=== PATIENT | male | born 1990 | race Caucasian/White ===

== ENCOUNTER 2018-02-21 19:32 | Inpatient (IN) | payer BC ==
[~2018-02-21] VITALS: Ht 188 cm; Wt 68.0 kg
[2018-02-21 19:54] VITALS: BP 124/78
--- NOTE | 2018-02-21 20:02 | NUR ---
PT. AMBULATED TO [facility]
[2018-02-21] MEDS ORDERED: NACL 0.9% 1,000 ML IV ONE ×3 (20:18→22:30)
--- NOTE | 2018-02-21 20:41 | NUR ---
27/M C/O GENERALIZED WEAKNESS AND BROWN URINE X 1330 TODAY. REPORTS OVEREXERTION TODAY AND THAT WAS WHEN ONSET OF SYMPTOMS STARTED. PMH: MYOGLOBINURIA AND RHABDOMIOLYSIS
--- NOTE | 2018-02-21 20:41 | NUR ---
PT.AMBULATED TO ER BED 9
[2018-02-21 20:56] LABS: APPEARANCE,URINE CLEAR (CLEAR); BILIRUBIN,URINE NEGATIVE (NEGATIVE); BLOOD, URINE 3+ (NEGATIVE); LEUKOCYTE ESTERASE ,URINE NEGATIVE (NEGATIVE); NITRITE, URINE NEGATIVE (NEGATIVE); UGLUCOSE NEGATIVE (NEGATIVE)
[2018-02-21 20:58] LABS: COLOR,URINE YELLOW (YELLOW)
[2018-02-21 21:03] LABS: BASOPHILS % (AUTO) 0.2 % (0.0-2.0); EOSINOPHILS # (AUTO) 0.1 K/uL (0-0.4); EOSINOPHILS % (AUTO) 0.5 % (0.0-4.0); HEMATOCRIT 49.6 % (36-52); LYMPHOCYTES # (AUTO) 1.6 K/uL (2.0-11.5); LYMPHOCYTES % (AUTO) 15.1 % (20.5-51.1); MEAN CORPUSCULAR HEMOGLOBIN 33 pg (27-31); MEAN CORPUSCULAR HGB CONC 34 g/dL (33-37); MONOCYTES % (AUTO) 8.9 % (1.7-9.3); NEUTROPHILS # (AUTO) 8.1 K/uL (1.8-7.7); NEUTROPHILS % (AUTO) 75.3 % (42.2-75.2); PLATELET COUNT (AUTO) 241 K/uL (140-450); RED BLOOD CELL COUNT(AUTO) 5.23 MIL/uL (4.20-6.10); RED CELL DISTRIBUTION WIDTH 12.7 % (11.6-13.7); WHITE BLOOD COUNT (AUTO) 10.7 K/uL (4.8-10.8)
[2018-02-21 21:06] LABS: RBC,URINE 0-5 (RARE) /HPF (0-5); WBC,URINE 0-5 (RARE) /HPF (0-5)
[2018-02-21 21:11] LABS: ANION GAP 13.8 (8-16); CARBON DIOXIDE 28.3 mmol/L (21-32); CREATININE 0.7 mg/dL (0.7-1.3); POTASSIUM 4.1 mmol/L (3.5-5.1)
[2018-02-21 21:18] LABS: ALBUMIN 4.7 g/dL (3.4-5.0); MAGNESIUM 2.2 mg/dL (1.8-2.4); PHOSPHORUS 3.8 mg/dL (2.5-4.9)
[2018-02-21] MEDS ORDERED: LORazepam 2 MG/ML VIAL IVP ONE (21:35)
--- NOTE | 2018-02-21 22:30 | NUR ---
Patient appears to be resting comfortably in bed. Vital Signs within normal limits. Respirations even and unlabored.
[2018-02-22] MEDS ORDERED: DIAZEPAM 5 MG TAB PO ONE (00:10)
[2018-02-22] MEDS ORDERED: KETOROLAC 30 MG/ML VIAL IVP ONE (01:15)
[2018-02-22] MEDS ORDERED: MORPHINE SULFATE 4 MG/ML SYR IVP ONE (01:20)
[2018-02-22] MEDS ORDERED: MORPHINE SULFATE 4 MG/ML SYR IVP PRN (02:00)
[2018-02-22] MEDS ORDERED: DOCUSATE SODIUM 100 MG GELCAP PO PRN (02:00)
[2018-02-22] MEDS ORDERED: ONDANSETRON 4 MG/2 ML VIAL IM/IVP PRN (02:00)
[2018-02-22] MEDS ORDERED: HYDROcodone/APAP 7.5/325 MG 1 TAB PO PRN (02:00)
[2018-02-22] MEDS ORDERED: ACETAMINOPHEN 325 MG TAB PO PRN (02:00)
--- NOTE | 2018-02-22 02:15 | NUR ---
Patient will be admitted to care of [facility]. Admited to TELE. Will go to room 119B. Belongings list completed. Report to RACHEL FRYE.
[2018-02-22 02:20] LABS: PROTHROMBIN TIME 10.1 secs (10.8-13.4)
[2018-02-22 02:30] VITALS: BP 117/77
[2018-02-22 02:30] LABS: CHOL/HDL RATIO 5.8 (1-4.5); FREE T4 (FREE THYROXINE) 0.89 ng/dL (0.76-1.46); MAGNESIUM 2.2 mg/dL (1.8-2.4); PHOSPHORUS 3.8 mg/dL (2.5-4.9); THYROID STIMULATING HORMONE 1.59 uIU/mL (0.34-3.74)
--- NOTE | 2018-02-22 02:30 | NUR ---
RECEIVED PT FROM ER VIA WHEELCHAIR AAOX4 AMBULATORY SKIN INTACT HL ON LEFT AC GAUGE # 2O RADHA TODD PROTOCOL DON AND SENT TO LAB DOCTOR GABBY IS HERE AND SEE THE PT PT IS ORIENTED TO THE FLOOR CALL LIGHT WITHIN REACH
[2018-02-22] MEDS: NACL 0.9% 1,000 ML IV SCH ×3 (02:45→19:04)
[2018-02-22] MEDS ORDERED: LORazepam 0.5 MG TAB PO PRN (03:15)
[2018-02-22] MEDS ORDERED: CYCLOBENZAPRINE 10 MG TAB PO SCH (03:16)
[2018-02-22] MEDS ORDERED: LAMO150T6 PO (03:29)
[2018-02-22] MEDS ORDERED: ATI.5 PO (03:29)
--- NOTE | 2018-02-22 03:34 | NUR ---
PT SUDDENLY VOMITING CLEAR AND ZOFRAN GIVEN ORDER
[2018-02-22 04:00] VITALS: BP 112/70
--- NOTE | 2018-02-22 06:00 | NUR ---
PT SLEEPING NOT DISTRESS NOTED ON TELMETRY SR IV INFUSING WELLON LEFT AC
[2018-02-22 08:00] VITALS: BP 108/57
--- NOTE | 2018-02-22 08:01 | NUR ---
REPORT RECEIVED FROM NIGHT NURSE AT BEDSIDE. PT LAYING DOWN IN BED. PT NOT IN ACUTE DISTRESS. BED LOCKED IN LOW POSITION. CALL SMITH WITHIN REACH. WILL CONTINUE TO MONITOR.
--- NOTE | 2018-02-22 08:45 | NUR ---
AM MEDS GIVEN. PT TOLERATED WELL. PT UP TO TAKE MEDICATION BUT STILL DROWSY. AFTER MEDS PT WENT BACK TO SLEEP. WILL CONTINUE TO MONITOR.
--- NOTE | 2018-02-22 08:49 | NUR ---
PATIENT HAS BEEN SCREENED AND CATEGORIZED MODERATE NUTRITION RISK. PATIENT WILL BE SEEN WITHIN 3-5 DAYS OF ADMISSION. 02/24/18 02/26/[address]
[2018-02-22] MEDS: CYCLOBENZAPRINE 10 MG TAB PO SCH ×3 (08:56→17:32)
[2018-02-22] MEDS: lamoTRIgine 100 MG, lamoTRIgine 50 MG PO SCH ×2 (08:57)
[2018-02-22 12:00] VITALS: BP 106/61
--- NOTE | 2018-02-22 13:50 | NUR ---
SPOKE WITH JOHN, PARTS FINISHER. FOR [facility], HAS BEEN APPROVED FOR 1 DAY, AUTH [id number]. SHE SAID TO FAX REVIEW TO [phone] PHONE [phone] OP 6 FOR [employer], IS [employer]. I CALLED [employer] AND SPOKE WITH MEGAN. FAX REVIEW TO [phone] PHONE [phone] MEGAN X [phone]
[2018-02-22 16:00] VITALS: BP 97/47
--- NOTE | 2018-02-22 17:30 | NUR ---
PM MED GIVEN, PT SLEEPING. VS STABLE. PT TOLERATED WELL. WILL CONTINUE TO MONITOR.
--- NOTE | 2018-02-22 19:00 | NUR ---
PT IV FLUID ENDED. REPLACED NEW IV FLUIDS. PT IN NO ACUTE DISTRESS. WILL CONTINUE TO MONITOR.
--- NOTE | 2018-02-22 19:37 | NUR ---
REPORT GIVEN TO NIGHT NURSE. PT IN STABLE CONDITION.
--- NOTE | 2018-02-22 19:37 | NUR ---
RECEIVED REPORT FROM NIGHT RN. PT RESTING IN BED. AAOX4. NO S/S OF ACUTE DISTRESS. PT DENIES PAIN. IV SITE PATENT AND INTACT. CALL LIGHT WITHIN REACH. SAFETY MEASURES ENSURED. WILL CONTINUE TO MONITOR.
[2018-02-22 22:23] VITALS: BP 121/76
--- NOTE | 2018-02-23 00:19 | NUR ---
PT SLEEPING IN BED. NO S/S OF ACUTE DISTRESS. CALL LIGHT WITHIN REACH. SAFETY MEASURES ENSURED. WILL CONTINUE TO MONITOR.
[2018-02-23] MEDS: NACL 0.9% 1,000 ML IV SCH ×5 (00:21→19:46)
[2018-02-23 04:00] VITALS: BP 101/54
[2018-02-23 06:30] LABS: BASOPHILS % (AUTO) 0.4 % (0.0-2.0); EOSINOPHILS # (AUTO) 0.2 K/uL (0-0.4); EOSINOPHILS % (AUTO) 2.9 % (0.0-4.0); HEMATOCRIT 36.2 % (36-52); HEMOGLOBIN 12.4 g/dL (12.0-18.0); LYMPHOCYTES # (AUTO) 1.8 K/uL (2.0-11.5); LYMPHOCYTES % (AUTO) 33.9 % (20.5-51.1); MEAN CORPUSCULAR HEMOGLOBIN 33 pg (27-31); MEAN CORPUSCULAR HGB CONC 34 g/dL (33-37); MEAN CORPUSCULAR VOLUME 95.9 fL (80-94); MONOCYTES # (AUTO) 0.5 K/uL (0.8-1.0); MONOCYTES % (AUTO) 9.4 % (1.7-9.3); NEUTROPHILS # (AUTO) 2.9 K/uL (1.8-7.7); NEUTROPHILS % (AUTO) 53.4 % (42.2-75.2); PLATELET COUNT (AUTO) 173 K/uL (140-450); RED BLOOD CELL COUNT(AUTO) 3.78 MIL/uL (4.20-6.10); RED CELL DISTRIBUTION WIDTH 12.8 % (11.6-13.7); WHITE BLOOD COUNT (AUTO) 5.3 K/uL (4.8-10.8)
[2018-02-23 06:56] LABS: CARBON DIOXIDE 29.9 mmol/L (21-32); CREATININE 0.4 mg/dL (0.7-1.3); POTASSIUM 3.9 mmol/L (3.5-5.1)
[2018-02-23 07:03] LABS: MAGNESIUM 1.6 mg/dL (1.8-2.4); PHOSPHORUS 3.5 mg/dL (2.5-4.9)
--- NOTE | 2018-02-23 07:31 | NUR ---
ENDORSED PLAN OF CARE TO NIGHT RN.
--- NOTE | 2018-02-23 07:36 | NUR ---
RECEIVED REPORT FROM MARKETING AND PUBLIC RELATIONS MANAGER NURSE, PT IS SLEEPING IN BED, BUT EASILY AWAKEN, PT IS AAOX4, AMBULATORY, IV IS ON THE LEFT AC, PATENT, INTACT, FLUSHING WELL, NO S/S OF RESPIRATORY DISTRESS OR DISCOMFORT NOTED, DISCUSSED PLAN OF CARE WITH PT, PT VERBALIZED UNDERSTANDING, CALL LIGHT WITHIN REACH, WILL CONTINUE TO MONITOR.
[2018-02-23 08:00] VITALS: BP 115/70
[2018-02-23] MEDS ORDERED: MAG SULF 2000 MG/WATER PREMIX 100 ML IV SCH (08:11)
[2018-02-23] MEDS: CYCLOBENZAPRINE 10 MG TAB PO SCH ×3 (08:19→17:49)
[2018-02-23] MEDS: lamoTRIgine 100 MG, lamoTRIgine 50 MG PO SCH ×2 (08:20)
[2018-02-23 08:28] LABS: T4 (THYROXINE) 7.6 ug/dL (4.5-12.0)
--- NOTE | 2018-02-23 11:18 | NUR ---
SPOKE TO DR. GROVE AND DR. MCCALLUM, I ASKED THEM IF PATIENT COULD BE DOWN GRADED TO MED SURG BECAUSE PATIENT DID NOT WANT TO WEAR THE TELE MONITOR BOX ANYMORE. PER DR. MCCALLUM OKAY TO DOWNGRADE PATIENT.
--- NOTE | 2018-02-23 11:30 | NUR ---
WALKED PATIENT OVER TO THE SHOWER ROOM.
--- NOTE | 2018-02-23 12:00 | NUR ---
PATIENT IS BACK IN ROOM. SOCIAL WORK MSW IS AT BEDSIDE GETTING READY TO DO ULTRASOUND OF THE ABDOMEN.
--- NOTE | 2018-02-23 15:19 | NUR ---
PATIENT IS RESTING IN BED USING HIS LAPTOP, PATIENT'S FAMILY MEMBER IS AT BEDSIDE, CALL LIGHT IS WITHIN REACH.
[2018-02-23 16:00] VITALS: BP 107/61
--- NOTE | 2018-02-23 19:07 | NUR ---
ENDORSED PT TO SLICING MACHINE OPERATOR NURSE FOR CONTINUITY OF CARE. PT STABLE AT THIS TIME.
--- NOTE | 2018-02-23 19:10 | NUR ---
RECEIVED REPORT FROM DAY SHIFT NURSE. PT SITTING IN BED WITH HIS LAPTOP. NO C/O PAIN. NO RESP DISTRESS NOTED. IV TO LEFT AC #20G, NS AT 200 ML/HE, INFUSING WELL. DISCUSSED PLAN OF CARE, PT VERBALIZED UNDERSTANDING. CALL LIGHT WITHIN REACH.
--- NOTE | 2018-02-23 21:30 | NUR ---
PT SITTING IN BED WATCHING MOVIE ON HIS LAPTOP. ALL NEEDS MET AT THIS TIME. NO C/O PAIN. CALL LIGHT WITHIN REACH.
[2018-02-24] VITALS: BP 112/6
--- NOTE | 2018-02-24 00:05 | NUR ---
PT IN BED, AWAKE. NO DISTRESS NOTED.
--- NOTE | 2018-02-24 02:30 | NUR ---
PT SLEEPING BUT EASILY WAKE SUP. RESP EVEN AND UNLABORED. NO S/S OF PAIN OR DISCOMFORT.
[2018-02-24] MEDS: NACL 0.9% 1,000 ML IV SCH ×5 (03:15→17:58)
--- NOTE | 2018-02-24 04:12 | NUR ---
PT IN BED, AWAKE. NO C/O PAIN OR SOB NOTED. CALL LIGHT WITHIN REACH.
--- NOTE | 2018-02-24 06:19 | NUR ---
PT SLEEPING BUT EASILY AROUSABLE. NO S/S OF DISTRESS.
--- NOTE | 2018-02-24 07:20 | NUR ---
ENDORSED PT TO DAY SHIFT NURSE. PT IN STABLE CONDITION.
--- NOTE | 2018-02-24 07:21 | NUR ---
RECEIVED REPORT FROM PM NURSE AT THE BEDSIDE FOR CONTINUITY OF CARE. INTRODUCED SELF TO PT. UPDATED BOARD. PT STABLE AT THIS TIME. ALL SAFETY MEASURE IN PLACE. WILL CONTINUE TO MONITOR.
[2018-02-24 07:54] LABS: BASOPHILS % (AUTO) 0.8 % (0.0-2.0); EOSINOPHILS # (AUTO) 0.1 K/uL (0-0.4); EOSINOPHILS % (AUTO) 3.1 % (0.0-4.0); HEMOGLOBIN 11.6 g/dL (12.0-18.0); LYMPHOCYTES # (AUTO) 1.7 K/uL (2.0-11.5); LYMPHOCYTES % (AUTO) 36.1 % (20.5-51.1); MEAN CORPUSCULAR HEMOGLOBIN 33 pg (27-31); MEAN CORPUSCULAR HGB CONC 34 g/dL (33-37); MEAN CORPUSCULAR VOLUME 96.3 fL (80-94); MONOCYTES # (AUTO) 0.4 K/uL (0.8-1.0); MONOCYTES % (AUTO) 9.3 % (1.7-9.3); NEUTROPHILS # (AUTO) 2.4 K/uL (1.8-7.7); NEUTROPHILS % (AUTO) 50.7 % (42.2-75.2); PLATELET COUNT (AUTO) 171 K/uL (140-450); RED BLOOD CELL COUNT(AUTO) 3.53 MIL/uL (4.20-6.10); RED CELL DISTRIBUTION WIDTH 12.7 % (11.6-13.7); WHITE BLOOD COUNT (AUTO) 4.8 K/uL (4.8-10.8)
[2018-02-24 08:00] VITALS: BP 119/71
[2018-02-24 08:02] LABS: ANION GAP 8.8 (8-16); CARBON DIOXIDE 29.1 mmol/L (21-32); CREATININE 0.5 mg/dL (0.7-1.3); POTASSIUM 3.9 mmol/L (3.5-5.1)
[2018-02-24 08:03] LABS: MAGNESIUM 1.7 mg/dL (1.8-2.4); PHOSPHORUS 3.7 mg/dL (2.5-4.9)
[2018-02-24] MEDS ORDERED: MAGNESIUM OXIDE 400 MG TAB PO SCH (09:10)
[2018-02-24] MEDS: lamoTRIgine 100 MG, lamoTRIgine 50 MG PO SCH ×2 (09:30)
[2018-02-24] MEDS: CYCLOBENZAPRINE 10 MG TAB PO SCH ×3 (09:31→17:58)
--- NOTE | 2018-02-24 12:55 | NUR ---
ADMINISTERED 0.9NS 1L @200ML/HR. PT TOLERATED WELL. WILL CONTINUE TO MONITOR PT.
--- NOTE | 2018-02-24 13:00 | NUR ---
ADMINISTERED FLEXERIL TO PT AT BEDSIDE. PT TOLERATED WELL. PT AWAKE AND TALKING WITH FAMILY MEMBERS AT BEDSIDE. PT WANTED TO KNOW ABOUT BLOOD DRAW SCHEDULED TIME. PT WANTED TO TALK TO DOC REGARDING HIS LAB DRAW. WILL NOTIFY DOC. PT STABLE. WILL CONTINUE TO MONITOR.
[2018-02-24 16:00] VITALS: BP 129/76
--- NOTE | 2018-02-24 17:58 | NUR ---
ADMINISTERED FLEXERIL 5 MG , 0.9NS 1L @200 ML/HR TO PT. PT INFORMED ABOUT HIS RECENT LAB. PT WANTED TO TALK TO DOC ABOUT HIS LAD. TOLD PT , WILL FOLLOW UP WITH DOC. PT TOLERATED MED WELL. PT STABLE AT THIS TIME. WILL CONTINUE TO MONITOR.
--- NOTE | 2018-02-24 19:00 | NUR ---
DC INSTRUCTIONS GIVEN. PT VERBALIZED UNDERSTANDING. IV REMOVED. CANNULA INTACT. NO BLEEDING NOTED. REMOVED ALL ID BANDS. PT ALREADY DRESSED IN CLOTHES. ALL BELONGINGS PACKED. REQUESTED RX FOR FLEXERIL. ASKED THE STUNNER RESIDENT . PT RX GIVEN.
[2018-02-24] MEDS ORDERED: CYCL10TA14 PO (19:02)
--- NOTE | 2018-02-24 19:05 | NUR ---
PT ESCORTED OUT TO THE FRONT BY RN STUDENT. PT ACCOMPANIED BY SIG OTHER. PERSONAL BELONGINGS WITH PT. PT IS IN STABLE CONDITION.
== END 2018-02-24 19:05 | disposition home or self-care (01) | DRG 557 ==
LOC: MED 19:32 → MTU 02-22 02:00
PROVIDERS: ADMIT Family Medicine Sports Medicine; ATTEND Family Medicine Sports Medicine
DX: M62.82 Rhabdomyolysis (principal); N17.0 Acute kidney failure with tubular necrosis; E74.04 McArdle disease; E78.5 Hyperlipidemia, unspecified; R74.0 Nonspecific elevation of levels of transaminase and lactic acid dehydrogenase [LDH]; E83.42 Hypomagnesemia; Z88.0 Allergy status to penicillin; Z79.899 Other long term (current) drug therapy; Z90.89 Acquired absence of other organs; Z82.49 Family history of ischemic heart disease and other diseases of the circulatory system; Z87.891 Personal history of nicotine dependence
CPT/HCPCS: 36415; 76700; 80048; 80053; 81001; 82150; 82550; 82553; 83036; 83690; 83735; 83874; 83880; 84100; 84436; 84439; 84443; 84479; 85025; 85610; 85730; 87081; 96361; 96374; 96375; 99285; J1885; J2060; J2270; J2405; J3475; J7030; Q0092